=== PATIENT | female | born 2005 | race Caucasian/White ===

== ENCOUNTER 2023-02-02 21:29 | Emergency (ER) | payer SELFPAY ==
[2023-02-02 21:43] VITALS: BP 105/78; PULSE 79; RESP 18; TEMP 36.7; O2SAT 99; BMI 25.7
--- NOTE | 2023-02-02 21:50 | ED.NURSE ---
[facility] nurse will be here in 1- 1/2 hours. pt. updated. pt. declined advocate at this time, friend is with patient.
[2023-02-03 03:43] VITALS: BP 105/78; PULSE 79; RESP 18; TEMP 36.7
--- NOTE | 2023-02-03 03:50 | ED.NURSE ---
pt. was dc'd from [facility] . pt. left ER with friend.
== END 2023-02-03 03:44 | disposition home or self-care (01) ==
LOC: ED 02-03 03:42
DX: T74.21XA Adult sexual abuse, confirmed, initial encounter (principal)